=== PATIENT | female | born 1995 | race African-American/Black ===

== ENCOUNTER 2017-05-31 13:51 | Emergency (ER) | payer BC ==
[~2017-05-31] VITALS: Ht 154.9 cm; Wt 81.7 kg
[2017-05-31] MEDS ORDERED: TUSSIONEX PENN115 ML PO (15:37)
[2017-05-31] MEDS ORDERED: PROAIR HFA8.5 GM INH (15:37)
[2017-05-31] MEDS ORDERED: ZPAK PO (15:57)
== END 2017-05-31 16:10 | disposition home or self-care (01) ==
LOC: ER 13:51
DX: J18.9 Pneumonia, unspecified organism (principal); J02.8 Acute pharyngitis due to other specified organisms; B97.89 Other viral agents as the cause of diseases classified elsewhere

== ENCOUNTER 2017-09-25 20:54 | Emergency (ER) | payer BC ==
[~2017-09-25] VITALS: Ht 154.9 cm; Wt 84.8 kg
[~2017-09-25 20:54] MED LIST: PROAIR HFA8.5 GM INH; TUSSIONEX PENN115 ML PO; ZPAK PO
[2017-09-25 23:57] VITALS: BP 121/85
== END 2017-09-25 23:00 | disposition home or self-care (01) ==
LOC: ER 20:54
DX: S31.823A Puncture wound without foreign body of left buttock, initial encounter (principal); X58.XXXA Exposure to other specified factors, initial encounter; Y93.89 Activity, other specified; Y92.89 Other specified places as the place of occurrence of the external cause; Y99.8 Other external cause status